=== PATIENT | male | born 1995 ===

== ENCOUNTER 2025-07-14 04:26 | Emergency (ER) | payer MEDICAID, OTHER ==
[2025-07-14] MEDS: Ketorolac 30 MG/ML SDV IM ONE (05:11)
[2025-07-14] MEDS: Take Home: Cyclobenzaprine 10 MG Tab, 4 Tab Pack PO ONE (05:13)
== END 2025-07-14 05:27 | disposition home or self-care (01) ==
LOC: DL.ED 04:26
DX: M54.6 Pain in thoracic spine (principal)
CPT/HCPCS: 99283; A9270